=== PATIENT | male | born 1965 | race Caucasian/White ===

== ENCOUNTER → 2024-01-07 09:20 | Outpatient (REF) | payer MEDICARE, SELFPAY ==
[2024-01-07 10:17] LABS: Hematocrit 31.7 % (39.0-52.0); Hemoglobin 11.1 g/dL (13.0-18.0); Mean Corpuscular Hgb 29.8 pg (27.0-31.0); Mean Corpuscular Volume 85.2 fL (80.0-94.0); Mean Platelet Volume 8.7 fL (7.4-10.4); Platelet Count 339 10^3/uL (130-400); Red Blood Cell Count 3.72 10^6/uL (4.70-6.10); Red Cell Dist. Width 13.2 % (11.5-14.5); White Blood Cell Count 7.8 10^3/uL (4.8-10.8)
[2024-01-07 11:11] LABS: Blood Urea Nitrogen 43 mg/dl (9-20); Calcium 9.6 mg/dl (8.4-10.2); Carbon Dioxide 24 mmol/L (22-30); Chloride 100 mmol/L (98-107); Glucose 114 mg/dl (70-99); Potassium 4.4 mmol/L (3.5-5.1); Sodium 135 mmol/L (135-145); eGFR 30.32
== END ==
LOC: SDSPAT 09:20
PROVIDERS: ATTENDING PHYSICIAN Surgery; FAMILY PHYSICIAN Family Medicine; OTHER PHYSICIAN Internal Medicine Cardiovascular Disease
DX: Z01.818 Encounter for other preprocedural examination (principal)
CPT/HCPCS: 36415; 80048; 85027

== ENCOUNTER → 2024-01-15 08:39 | Outpatient (REF) | payer MEDICARE, SELFPAY | LOC: HWRAD 08:39 | PROVIDERS: ATTENDING PHYSICIAN Surgery; FAMILY PHYSICIAN Family Medicine | DX: K40.90 Unilateral inguinal hernia, without obstruction or gangrene, not specified as recurrent (principal); N50.89 Other specified disorders of the male genital organs; R22.41 Localized swelling, mass and lump, right lower limb | CPT/HCPCS: 76870; 76882; 93976 ==

== ENCOUNTER 2024-01-22 06:18 | Day surgery (SDC) | payer MEDICARE, SELFPAY ==
[2024-01-07 12:00] VITALS: BMI 19.9
--- NOTE | 2024-01-14 09:15 | PTCARENOTE ---
Patients GFR 30.32- Latesha @ Dr. Apple office notified
[2024-01-22] VITALS (13 sets, daily range): BP systolic 132–177; BP diastolic 78–92; BMI 19.9
--- NOTE | 2024-01-22 08:01 | PTCARENOTE ---
made aware of Bum-43 and Cr 2.4. orders for NSS instead of Normosol
[2024-01-22] MEDS: TYLENOL 1000 MG PO (08:27)
== END 2024-01-22 12:31 | disposition home or self-care (01) ==
LOC: SDS 06:18
PROVIDERS: ATTENDING PHYSICIAN Surgery
DX: K40.90 Unilateral inguinal hernia, without obstruction or gangrene, not specified as recurrent (principal)
CPT/HCPCS: 49650; C1781

== ENCOUNTER → 2024-12-12 10:03 | Outpatient (REF) | payer MEDICARE, SELFPAY | LOC: DHVS 10:03 | PROVIDERS: ATTENDING PHYSICIAN Surgery Vascular Surgery | DX: I65.23 Occlusion and stenosis of bilateral carotid arteries (principal); I77.9 Disorder of arteries and arterioles, unspecified; I70.1 Atherosclerosis of renal artery | CPT/HCPCS: 93880; 93922; 93925; 93975; 93978 ==